=== PATIENT | male | born 1975 | race Hispanic/Latino ===

== ENCOUNTER 2018-10-20 09:29 | Outpatient (CLI) | payer BC | END 2018-10-20 09:30 | disposition home or self-care (01) | LOC: RAD 09:29 ==

== ENCOUNTER 2018-12-13 11:07 | Outpatient (CLI) | payer BC | END 2018-12-13 11:08 | disposition home or self-care (01) | LOC: RAD 11:07 | DX: R42 Dizziness and giddiness (principal); R51 Headache; G93.0 Cerebral cysts ==